=== PATIENT | male | born 1990 | race Caucasian/White ===

== ENCOUNTER 2023-02-28 16:42 | Emergency (ER) | payer OTHER ==
[2023-02-28 17:02] VITALS: BP 110/76; PULSE 103; RESP 18; TEMP 98.5; BMI 34.2
[2023-02-28] MEDS ORDERED: ONDANSETRON *ODT* 4 MG TABLET SL ONE (17:47)
[2023-02-28] MEDS ORDERED: ACETAMINOPHEN 500 MG TABLET (FP) PO ONE (17:48)
[2023-02-28] MEDS ORDERED: ONDANSETRON *ODT* 4 MG TABLET ONE ×3 (17:52→18:54)
[2023-02-28] MEDS ORDERED: ACETAMINOPHEN 500 MG TABLET (FP) ONE (18:16)
[2023-02-28] MEDS ORDERED: ONDANSETRON 8 MG TABLET (FP) PO ONE (18:50)
== END 2023-02-28 19:25 | disposition home or self-care (01) ==
LOC: JER 16:42
DX: K52.9 Noninfective gastroenteritis and colitis, unspecified (principal); R11.2 Nausea with vomiting, unspecified; R19.7 Diarrhea, unspecified; R10.33 Periumbilical pain
CPT/HCPCS: 99283-25; Q0162